=== PATIENT | male | born 1975 | race African-American/Black ===

== ENCOUNTER 2023-03-14 13:06 | Inpatient (IN) | payer OTHER ==
[2023-03-14 13:26] VITALS: BMI 37.6
[2023-03-14] MEDS ORDERED: SODIUM CHLORIDE 1,000 ML IV STA (14:44)
[2023-03-14] MEDS ORDERED: ACETAMINOPHEN 1000 MG/100 ML BAG IVPB ONE (14:44)
[2023-03-14] MEDS ORDERED: VANCOMYCIN 1,000 MG in DEXTROSE 5%-WATER - 250 ML IVPB ONE (14:54)
[2023-03-14] MEDS ORDERED: PIPERACILLIN/TAZOB 3.375 GM 3.375 GM in DEXTROSE 5%-WATER - 50 ML IVPB ONE (14:54)
[2023-03-14] MEDS ORDERED: ACETAMINOPHEN INJECTION 100 ML IVPB ONE (14:57)
[2023-03-14 15:48] LABS: BASO % 0.7 % (0-2.0); EOS % 4.8 % (0-4.5); LYMPH % 21.1 % (8-40); MCH 22.4 pg (25.7-33.7); MEAN CELL VOLUME 72.4 fl (80-96); MEAN PLT VOLUME 9.2 fl (7.5-11.1); MONO % 9.4 % (3.8-10.2); PLATELET COUNT 267 10^3/uL (134-434); WHITE BLOOD COUNT 6.4 K/mm3 (4.0-10.0)
[2023-03-14 15:49] LABS: INR 1.58 (0.83-1.09); PROTHROMBIN TIME (PATIENT) 18.3 SEC (9.7-13.0)
[2023-03-14 15:51] LABS: ACTIVATED PTT 38.7 SECONDS (25.2-36.5)
[2023-03-14] MEDS ORDERED: VANCOMYCIN 1 GRAM (PRE-DOCKED) 1,000 MG/250 ML BAG IVPB ONE (16:00)
[2023-03-14] MEDS ORDERED: PIPERACILLIN/TAZOB 3.375 GM 3.375 GM/50 ML BAG IVPB ONE (16:01)
[2023-03-14 16:11] LABS: POTASSIUM 4.9 mmol/L (3.5-5.1)
[2023-03-14 16:13] LABS: ALBUMIN 3.2 g/dl (3.4-5.0); BLOOD UREA NITROGEN 19.6 mg/dL (7-18); CALCIUM 8.9 mg/dL (8.5-10.1)
[2023-03-14 16:15] LABS: CREATININE 1.4 mg/dL (0.55-1.3)
[2023-03-14 16:17] LABS: BILIRUBIN,TOTAL 0.9 mg/dL (0.2-1); TOT PROT 7.5 g/dl (6.4-8.2)
[2023-03-14 16:28] LABS: ERYTHROCYTE SEDIMENTATION RATE 1 mm/hr (0-10)
[2023-03-14 16:30] LABS: EPI CELLS >36 /uL (0-25.1); HYALINE CASTS 7 /uL (0-3.1); PH,URINE 6.5 (5.0-8.0); URINE APPEARANCE CLEAR; URINE BACTERIA 73 /uL (0-1359); URINE BILIRUBIN NEGATIVE (NEGATIVE); URINE COLOR YELLOW; URINE GLUCOSE (UA) NEGATIVE (NEGATIVE); URINE KETONE TRACE (NEGATIVE); URINE LEUK ESTERASE NEGATIVE (NEGATIVE); URINE NITRITE NEGATIVE (NEGATIVE); URINE PROTEIN 4+ (NEGATIVE); URINE RBC 94 /uL (0-23.9); URINE UROBILINOGEN 0.2 mg/dL (0.2-1.0)
[2023-03-14] MEDS ORDERED: KETOROLAC TROMETHAMINE 30 MG/1 ML VIAL IVPUSH ONE (19:46)
[2023-03-14 21:31] LABS: URINE WBC 63.4 /uL (0-25.8)
[2023-03-15] MEDS ORDERED: ACETAMINOPHEN 1000 MG/100 ML BAG IVPB PRN (01:24)
[2023-03-15] MEDS: LABETALOL HCL 100 MG TABLET (FP) PO SCH ×4 (01:50→22:25)
[2023-03-15] MEDS ORDERED: LABETALOL HCL 100 MG TABLET (FP) ONE (01:54)
[2023-03-15] MEDS ORDERED: VANCOMYCIN 1 GRAM (PRE-DOCKED) 1,000 MG/250 ML BAG IVPB ONE (01:54)
[2023-03-15] MEDS: VANCOMYCIN 1,000 MG in DEXTROSE 5%-WATER - 250 ML IVPB SCH ×2 (02:08→12:10)
[2023-03-15] MEDS: PIPERACILLIN/TAZOB 3.375 GM 3.375 GM in DEXTROSE 5%-WATER - 50 ML IVPB SCH ×4 (02:30→20:48)
[2023-03-15] MEDS ORDERED: PIPERACILLIN/TAZOB 3.375 GM 3.375 GM/50 ML BAG IVPB ONE (02:37)
[2023-03-15] MEDS ORDERED: VANCOMYCIN/WATER FOR INJ (PEG) 1,000 MG/200 ML BAG IVPB SCH (04:00)
[2023-03-15] MEDS: ENOXAPARIN NA (PORCINE) 40 MG/0.4 ML DISP.SYRIN SQ SCH (09:57)
[2023-03-15] MEDS ORDERED: VALSARTAN 160 MG TABLET PO SCH (10:00)
[2023-03-15 10:09] LABS: POTASSIUM 3.5 mmol/L (3.5-5.1)
[2023-03-15 10:14] LABS: ALBUMIN 2.8 g/dl (3.4-5.0); BLOOD UREA NITROGEN 20.1 mg/dL (7-18); CALCIUM 8.8 mg/dL (8.5-10.1)
[2023-03-15 10:17] LABS: CREATININE 1.3 mg/dL (0.55-1.3)
[2023-03-15 10:20] LABS: BILIRUBIN,TOTAL 0.9 mg/dL (0.2-1); TOT PROT 6.3 g/dl (6.4-8.2)
[2023-03-15 10:34] LABS: BASO % 0.9 % (0-2.0); EOS % 7.7 % (0-4.5); HEMATOCRIT 48.5 % (35.4-49); HEMOGLOBIN 16.1 GM/dL (11.7-16.9); LYMPH % 31.9 % (8-40); MCH 23.3 pg (25.7-33.7); MCHC 33.1 g/dl (32.0-35.9); MEAN CELL VOLUME 70.2 fl (80-96); MEAN PLT VOLUME 8.9 fl (7.5-11.1); MONO % 10.5 % (3.8-10.2); PLATELET COUNT 237 10^3/uL (134-434); WHITE BLOOD COUNT 4.3 K/mm3 (4.0-10.0)
[2023-03-15] MEDS ORDERED: LOSARTAN POTASSIUM 50 MG TABLET PO SCH (15:00)
[2023-03-15] MEDS: CEFTRIAXONE 1 GM in DEXTROSE 5%-WATER - 50 ML IVPB SCH (15:39)
[2023-03-15] MEDS: ASPIRIN 81 MG CHEWABLE TABLETS PO SCH (15:39)
[2023-03-15] MEDS: RIVAROXABAN 20 MG TABLET PO SCH (15:39)
[2023-03-15] MEDS: metFORMIN HCL 500 MG TABLET (FP) PO SCH (17:42)
[2023-03-15] MEDS ORDERED: hydrALAZINE HCL 20 MG/ML VIAL IVPB ONE (18:00)
[2023-03-15] MEDS: amLODIPine BESYLATE 5 MG TABLET (FP) PO SCH (18:58)
[2023-03-15] MEDS: oxyCODONE HCL 5 MG TABLET PO PRN (19:08)
[2023-03-15] MEDS: COLLAGENASE CLOSTRIDIUM HIST. 30 GRAMS TUBE TP SCH ×2 (19:55→22:07)
[2023-03-15] MEDS: cloNIDine HCL 0.1 MG TABLET PO SCH (20:23)
[2023-03-15] MEDS: GABAPENTIN 100 MG CAPSULE PO SCH (21:58)
[2023-03-15] MEDS ORDERED: cloNIDine HCL 0.1 MG TABLET PO SCH (22:00)
[2023-03-15] MEDS: ATORVASTATIN CA 80 MG TABLET (FP) PO SCH (22:29)
[2023-03-16] MEDS: oxyCODONE HCL 5 MG TABLET PO PRN ×3 (02:16→19:50)
[2023-03-16] MEDS: metFORMIN HCL 500 MG TABLET (FP) PO SCH ×2 (06:30→17:12)
[2023-03-16] MEDS: GABAPENTIN 100 MG CAPSULE PO SCH ×3 (06:30→21:03)
[2023-03-16] MEDS ORDERED: VALSARTAN 160 MG TABLET PO SCH (10:00)
[2023-03-16] MEDS ORDERED: PATIENT'S OWN MEDICATION (NON-FORMULARY) (Valsartan [Valsartan] 320 MG Tablet) PO SCH (10:00)
[2023-03-16] MEDS: cloNIDine HCL 0.1 MG TABLET PO SCH ×2 (10:22→21:02)
[2023-03-16] MEDS: LABETALOL HCL 100 MG TABLET (FP) PO SCH ×2 (10:22→21:01)
[2023-03-16] MEDS: ENOXAPARIN NA (PORCINE) 40 MG/0.4 ML DISP.SYRIN SQ SCH (10:37)
[2023-03-16] MEDS: LOSARTAN POTASSIUM 50 MG TABLET PO SCH (10:55)
[2023-03-16] MEDS: RIVAROXABAN 20 MG TABLET PO SCH (10:55)
[2023-03-16] MEDS: CEFTRIAXONE 1 GM in DEXTROSE 5%-WATER - 50 ML IVPB SCH (10:55)
[2023-03-16] MEDS: COLLAGENASE CLOSTRIDIUM HIST. 30 GRAMS TUBE TP SCH (10:55)
[2023-03-16] MEDS: ASPIRIN 81 MG CHEWABLE TABLETS PO SCH (10:55)
[2023-03-16] MEDS: amLODIPine BESYLATE 5 MG TABLET (FP) PO SCH (10:55)
[2023-03-16 14:30] LABS: N-TERMINAL BNP 905.2 pg/ml (5-125)
[2023-03-16] MEDS: ATORVASTATIN CA 80 MG TABLET (FP) PO SCH (21:02)
[2023-03-17] MEDS: GABAPENTIN 100 MG CAPSULE PO SCH ×3 (05:40→22:00)
[2023-03-17] MEDS: metFORMIN HCL 500 MG TABLET (FP) PO SCH ×2 (06:23→17:42)
[2023-03-17] MEDS: CEFTRIAXONE 1 GM in DEXTROSE 5%-WATER - 50 ML IVPB SCH (09:51)
[2023-03-17] MEDS: cloNIDine HCL 0.1 MG TABLET PO SCH ×2 (09:51→22:00)
[2023-03-17] MEDS: LOSARTAN POTASSIUM 50 MG TABLET PO SCH (09:51)
[2023-03-17] MEDS: amLODIPine BESYLATE 5 MG TABLET (FP) PO SCH (09:51)
[2023-03-17] MEDS: LABETALOL HCL 100 MG TABLET (FP) PO SCH ×2 (09:51→22:00)
[2023-03-17] MEDS: ASPIRIN 81 MG CHEWABLE TABLETS PO SCH (09:51)
[2023-03-17] MEDS: RIVAROXABAN 20 MG TABLET PO SCH (09:51)
[2023-03-17] MEDS: COLLAGENASE CLOSTRIDIUM HIST. 30 GRAMS TUBE TP SCH (09:56)
[2023-03-17] MEDS: ENOXAPARIN NA (PORCINE) 40 MG/0.4 ML DISP.SYRIN SQ SCH (10:45)
[2023-03-17] MEDS ORDERED: hydrALAZINE HCL 25 MG TABLET (FP) PO SCH (12:45)
[2023-03-17] MEDS ORDERED: hydrALAZINE HCL 25 MG TABLET (FP) PO ONE (13:30)
[2023-03-17] MEDS: oxyCODONE HCL 5 MG TABLET PO PRN (17:50)
[2023-03-17] MEDS: ATORVASTATIN CA 80 MG TABLET (FP) PO SCH (22:00)
[2023-03-17] MEDS: hydrALAZINE HCL 25 MG TABLET (FP) PO SCH (22:00)
[2023-03-18] MEDS: oxyCODONE HCL 5 MG TABLET PO PRN ×2 (01:34→17:52)
[2023-03-18] MEDS: hydrALAZINE HCL 25 MG TABLET (FP) PO SCH ×3 (06:02→21:46)
[2023-03-18] MEDS: metFORMIN HCL 500 MG TABLET (FP) PO SCH ×2 (06:03→17:46)
[2023-03-18] MEDS: GABAPENTIN 100 MG CAPSULE PO SCH ×3 (06:03→21:46)
[2023-03-18 09:18] LABS: HEMATOCRIT 48.9 % (35.4-49); HEMOGLOBIN 15.2 GM/dL (11.7-16.9); MCH 22.3 pg (25.7-33.7); MEAN PLT VOLUME 8.6 fl (7.5-11.1); PLATELET COUNT 239 10^3/uL (134-434); RDW 17.6 % (11.9-15.9); WHITE BLOOD COUNT 4.8 K/mm3 (4.0-10.0)
[2023-03-18 09:43] LABS: POTASSIUM 3.5 mmol/L (3.5-5.1)
[2023-03-18 09:56] LABS: ALBUMIN 2.7 g/dl (3.4-5.0); CALCIUM 8.9 mg/dL (8.5-10.1)
[2023-03-18 09:57] LABS: BLOOD UREA NITROGEN 22.4 mg/dL (7-18)
[2023-03-18] MEDS: ASPIRIN 81 MG CHEWABLE TABLETS PO SCH (09:57)
[2023-03-18] MEDS: CEFTRIAXONE 1 GM in DEXTROSE 5%-WATER - 50 ML IVPB SCH (09:57)
[2023-03-18] MEDS: cloNIDine HCL 0.1 MG TABLET PO SCH ×2 (09:57→21:46)
[2023-03-18] MEDS: LOSARTAN POTASSIUM 50 MG TABLET PO SCH (09:57)
[2023-03-18] MEDS: LABETALOL HCL 100 MG TABLET (FP) PO SCH ×2 (09:57→21:46)
[2023-03-18] MEDS: amLODIPine BESYLATE 5 MG TABLET (FP) PO SCH (09:57)
[2023-03-18 09:59] LABS: CREATININE 1.1 mg/dL (0.55-1.3)
[2023-03-18 10:01] LABS: BILIRUBIN,TOTAL 0.9 mg/dL (0.2-1); TOT PROT 6.2 g/dl (6.4-8.2)
[2023-03-18] MEDS: COLLAGENASE CLOSTRIDIUM HIST. 30 GRAMS TUBE TP SCH (10:03)
[2023-03-18 10:13] LABS: ANISOCYTOSIS 2+; MACROCYTOSIS 1+; OVALOCYTE 1+; TEAR DROP CELLS 1+
[2023-03-18] MEDS ORDERED: amLODIPine BESYLATE 5 MG TABLET (FP) PO ONE (12:45)
[2023-03-18] MEDS: RIVAROXABAN 20 MG TABLET PO SCH (17:46)
[2023-03-18] MEDS: ATORVASTATIN CA 80 MG TABLET (FP) PO SCH (21:49)
[2023-03-18 22:28] VITALS: RESP 20
[2023-03-19] MEDS: hydrALAZINE HCL 25 MG TABLET (FP) PO SCH ×3 (06:17→21:27)
[2023-03-19] MEDS: metFORMIN HCL 500 MG TABLET (FP) PO SCH ×2 (06:18→18:08)
[2023-03-19] MEDS: GABAPENTIN 100 MG CAPSULE PO SCH ×3 (06:18→21:27)
[2023-03-19] MEDS: LOSARTAN POTASSIUM 50 MG TABLET PO SCH (11:07)
[2023-03-19] MEDS: ASPIRIN 81 MG CHEWABLE TABLETS PO SCH (11:07)
[2023-03-19] MEDS: LABETALOL HCL 100 MG TABLET (FP) PO SCH ×2 (11:08→21:27)
[2023-03-19] MEDS: CEFTRIAXONE 1 GM in DEXTROSE 5%-WATER - 50 ML IVPB SCH (11:08)
[2023-03-19] MEDS: amLODIPine BESYLATE 10 MG TABLET (FP) PO SCH (11:08)
[2023-03-19] MEDS: cloNIDine HCL 0.1 MG TABLET PO SCH ×2 (11:08→21:27)
[2023-03-19] MEDS: COLLAGENASE CLOSTRIDIUM HIST. 30 GRAMS TUBE TP SCH (13:36)
[2023-03-19] MEDS: RIVAROXABAN 20 MG TABLET PO SCH (18:08)
[2023-03-19] MEDS: ACETAMINOPHEN 1000 MG/100 ML BAG IVPB PRN (20:30)
[2023-03-19] MEDS: ATORVASTATIN CA 80 MG TABLET (FP) PO SCH (21:27)
[2023-03-20] MEDS: ACETAMINOPHEN 1000 MG/100 ML BAG IVPB PRN (03:43)
[2023-03-20] MEDS: metFORMIN HCL 500 MG TABLET (FP) PO SCH ×2 (06:43→17:58)
[2023-03-20] MEDS: hydrALAZINE HCL 25 MG TABLET (FP) PO SCH ×3 (06:43→22:07)
[2023-03-20] MEDS: GABAPENTIN 100 MG CAPSULE PO SCH ×3 (06:43→22:07)
[2023-03-20] MEDS: LOSARTAN POTASSIUM 50 MG TABLET PO SCH (10:27)
[2023-03-20] MEDS: CEFTRIAXONE 1 GM in DEXTROSE 5%-WATER - 50 ML IVPB SCH (10:27)
[2023-03-20] MEDS: cloNIDine HCL 0.1 MG TABLET PO SCH ×2 (10:27→22:06)
[2023-03-20] MEDS: ASPIRIN 81 MG CHEWABLE TABLETS PO SCH (10:27)
[2023-03-20] MEDS: COLLAGENASE CLOSTRIDIUM HIST. 30 GRAMS TUBE TP SCH (10:27)
[2023-03-20] MEDS: amLODIPine BESYLATE 10 MG TABLET (FP) PO SCH (10:27)
[2023-03-20] MEDS: LABETALOL HCL 100 MG TABLET (FP) PO SCH ×2 (10:27→22:07)
[2023-03-20] MEDS: ACETAMINOPHEN 500 MG TABLET (FP) PO PRN ×2 (15:48→22:07)
[2023-03-20] MEDS: RIVAROXABAN 20 MG TABLET PO SCH (18:00)
[2023-03-20] MEDS: ATORVASTATIN CA 80 MG TABLET (FP) PO SCH (22:07)
[2023-03-20] MEDS ORDERED: IBUPROFEN 600 MG TABLET (FP) PO ONE (23:51)
[2023-03-21] MEDS: GABAPENTIN 100 MG CAPSULE PO SCH ×2 (06:47→13:51)
[2023-03-21] MEDS: hydrALAZINE HCL 25 MG TABLET (FP) PO SCH ×2 (06:47→13:51)
[2023-03-21] MEDS: metFORMIN HCL 500 MG TABLET (FP) PO SCH (06:47)
[2023-03-21] MEDS: cloNIDine HCL 0.1 MG TABLET PO SCH (09:46)
[2023-03-21] MEDS: LOSARTAN POTASSIUM 50 MG TABLET PO SCH (09:47)
[2023-03-21] MEDS: amLODIPine BESYLATE 10 MG TABLET (FP) PO SCH (09:47)
[2023-03-21] MEDS: ASPIRIN 81 MG CHEWABLE TABLETS PO SCH (09:47)
[2023-03-21] MEDS: CEFTRIAXONE 1 GM in DEXTROSE 5%-WATER - 50 ML IVPB SCH (09:47)
[2023-03-21] MEDS: LABETALOL HCL 100 MG TABLET (FP) PO SCH (09:47)
[2023-03-21] MEDS: COLLAGENASE CLOSTRIDIUM HIST. 30 GRAMS TUBE TP SCH (09:49)
[2023-03-21 10:41] LABS: POTASSIUM 3.9 mmol/L (3.5-5.1)
[2023-03-21 10:47] LABS: CALCIUM 9.1 mg/dL (8.5-10.1)
[2023-03-21 10:48] LABS: ALBUMIN 3.1 g/dl (3.4-5.0); BLOOD UREA NITROGEN 21.7 mg/dL (7-18)
[2023-03-21 10:51] LABS: CREATININE 1.1 mg/dL (0.55-1.3)
[2023-03-21 10:52] LABS: BILIRUBIN,TOTAL 1.1 mg/dL (0.2-1)
[2023-03-21] MEDS ORDERED: SPIRONOLACTONE 25 MG TABLET PO SCH (13:15)
[2023-03-21] MEDS ORDERED: HYDROCHLOROTHIAZIDE 25 MG TABLET (FP) PO SCH (15:15)
[2023-03-21 15:54] VITALS: BP 146/101; PULSE 82; TEMP 97.5
== END 2023-03-21 15:52 | disposition home or self-care (01) | DRG 638 ==
LOC: JER 13:06 → JERBED 17:43 → OBSVTOIN 03-15 01:22 → J8W 03-15 03:52
PROVIDERS: ADMIT Internal Medicine; ATTEND Internal Medicine
DX: E11.622 Type 2 diabetes mellitus with other skin ulcer (principal); L03.116 Cellulitis of left lower limb; L97.828 Non-pressure chronic ulcer of other part of left lower leg with other specified severity; E11.51 Type 2 diabetes mellitus with diabetic peripheral angiopathy without gangrene; I16.0 Hypertensive urgency; E78.5 Hyperlipidemia, unspecified; L08.9 Local infection of the skin and subcutaneous tissue, unspecified; I12.9 Hypertensive chronic kidney disease with stage 1 through stage 4 chronic kidney disease, or unspecified chronic kidney disease; E11.22 Type 2 diabetes mellitus with diabetic chronic kidney disease; N18.9 Chronic kidney disease, unspecified; E11.65 Type 2 diabetes mellitus with hyperglycemia; R80.9 Proteinuria, unspecified; F41.9 Anxiety disorder, unspecified; I48.91 Unspecified atrial fibrillation; R31.9 Hematuria, unspecified; S81.802A Unspecified open wound, left lower leg, initial encounter; E66.9 Obesity, unspecified; Z68.37 Body mass index [BMI] 37.0-37.9, adult; W01.0XXA Fall on same level from slipping, tripping and stumbling without subsequent striking against object, initial encounter; Y93.89 Activity, other specified; Y92.480 Sidewalk as the place of occurrence of the external cause
CPT/HCPCS: 36415; 71045-TC-FY; 73590-TC-LT-FY; 76775-TC; 80053; 80061; 81003; 82550; 82570; 82962; 83036; 83605; 83880; 84156; 84443; 84484; 85025; 85610; 85651; 85730; 86038; 86140; 86160; 86704; 86803; 87040; 87086; 87340; 93005; 93010; 93306-TC; 93926-TC; 93971-TC; 99285-25; G0378